=== PATIENT | male | born 1990 | race Hispanic/Latino ===

== ENCOUNTER 2020-10-06 12:00 | Day surgery (SDC) | payer OTHER ==
[2020-10-05 18:02] VITALS: BP 144/88
[~2020-10-06] VITALS: Ht 180.3 cm; Wt 103.3 kg
[~2020-10-06 12:00] MED LIST: CYCL10 PO
[2020-10-06] MEDS ORDERED: LACTATED RINGERS 1000ML 1,000 ML IV ONE (12:32)
[2020-10-06] MEDS ORDERED: IOPAMIDOL 10 ML VIAL ONE (12:50)
[2020-10-06] MEDS ORDERED: DEXAMETHASONE SOD PHOSPHATE 4 MG/ML 1ML VIAL ONE (13:18)
[2020-10-06] MEDS ORDERED: LIDOCAINE HCL 1% 20 ML VIAL ONE (13:18)
[2020-10-06 13:50] VITALS: BP 124/80
[2020-10-06 14:05] VITALS: BP 125/77
[2020-10-06 14:20] VITALS: BP 124/72
== END 2020-10-06 14:20 | disposition home or self-care (01) ==
LOC: DAH 12:00
PROVIDERS: ATTEND Family Medicine Sports Medicine
DX: M50.13 Cervical disc disorder with radiculopathy, cervicothoracic region (principal); J45.909 Unspecified asthma, uncomplicated; Z79.899 Other long term (current) drug therapy; Z20.828 Contact with and (suspected) exposure to other viral communicable diseases
CPT/HCPCS: 62321; 72040; A4215 ×2; A4216; A4221; A4222; A4223 ×3; A4606 ×2; A4615; A4657; A4663; C9803; J1100; J7120; Q9966; U0003